=== PATIENT | male | born 1985 | race Caucasian/White ===

== ENCOUNTER 2016-11-08 04:06 | Emergency (ER) | payer OTHER ==
[~2016-11-08] VITALS: Ht 185.4 cm; Wt 76.5 kg
[2016-11-08] MEDS ORDERED: PERCOCET 5/31 TABLET PO (06:30)
[2016-11-08] MEDS ORDERED: AUGMENTIN875 MG PO (06:30)
[2016-11-08 07:10] VITALS: BP 143/88
[2016-11-09] MEDS ORDERED: NAPROSYN500 MG PO (09:02)
[2016-11-09] MEDS ORDERED: PERCOCET 5/31 TABLET PO (09:02)
== END 2016-11-08 07:10 | disposition home or self-care (01) ==
LOC: EME 04:06
PROC: 0HQDXZZ Repair Right Lower Arm Skin, External Approach (ICD-10-PCS; principal; 2016-11-08)
PROC: 0HQEXZZ Repair Left Lower Arm Skin, External Approach (ICD-10-PCS; principal; 2016-11-08)
DX: S51.832A Puncture wound without foreign body of left forearm, initial encounter (principal); S51.831A Puncture wound without foreign body of right forearm, initial encounter; M79.89 Other specified soft tissue disorders; W54.0XXA Bitten by dog, initial encounter; F17.200 Nicotine dependence, unspecified, uncomplicated
CPT/HCPCS: 73110; 99281; 99282

== ENCOUNTER 2016-11-09 08:00 | Emergency (ER) | payer OTHER ==
[~2016-11-09] VITALS: Ht 185.4 cm; Wt 75.3 kg
[~2016-11-09 08:00] MED LIST: AUGMENTIN875 MG PO; PERCOCET 5/31 TABLET PO
[2016-11-09] MEDS ORDERED: PERCOCET 5/31 TABLET PO (09:02)
[2016-11-09] MEDS ORDERED: NAPROSYN500 MG PO (09:02)
[2016-11-09 09:17] VITALS: BP 130/76
== END 2016-11-09 09:18 | disposition home or self-care (01) ==
LOC: EME 08:00
DX: S61.552D Open bite of left wrist, subsequent encounter (principal); S61.551D Open bite of right wrist, subsequent encounter; S81.052D Open bite, left knee, subsequent encounter; S81.051D Open bite, right knee, subsequent encounter; S62.102D Fracture of unspecified carpal bone, left wrist, subsequent encounter for fracture with routine healing; W54.0XXD Bitten by dog, subsequent encounter; R00.0 Tachycardia, unspecified
CPT/HCPCS: 99281; 99283